=== PATIENT | female | born 2000 | race Caucasian/White ===

== ENCOUNTER 2024-10-07 01:21 | Emergency (ER) | payer MEDICAID ==
[~2024-10-07] VITALS: Ht 162.6 cm; Wt 62.4 kg
[2024-10-07 01:30] VITALS: O2SAT 99
[2024-10-07 01:32] VITALS: BP 92/58; PULSE 73; RESP 18; TEMP 37; O2SAT 99
[2024-10-07] MEDS: ACETAMINOPHEN 325MG TABLET PO ONE (03:36)
[2024-10-07] MEDS ORDERED: CLOT15CR27 TP (04:51)
[2024-10-07] MEDS ORDERED: ACET-2708 MT (04:51)
== END 2024-10-07 05:44 | disposition home or self-care (01) ==
LOC: ER 01:21
DX: O23.592 Infection of other part of genital tract in pregnancy, second trimester (principal); Z79.899 Other long term (current) drug therapy; Z3A.18 18 weeks gestation of pregnancy
CPT/HCPCS: 87210; 99284; Z7610